=== PATIENT | male | born 1945 | race Caucasian/White ===

== ENCOUNTER 2017-03-20 15:47 | Emergency (ER) | payer MEDICARE, OTHER ==
[2017-03-20 16:09] VITALS: BP 133/66
--- NOTE | 2017-03-20 16:31 | UC ---
UC General HPI - HPI Summary HPI Summary: C/O increased blood sugars up into the 400's. Also c/o left leg electric pain. - History of Current Complaint Chief Complaint: UCGeneralIllness Stated Complaint: ELEVATED BLOOD SUGAR Time Seen by Provider: 03/20/17 16:17 Hx Obtained From: Patient Onset/Duration: Sudden Onset - started checking sugars today and 300-400. Timing: Constant Onset Severity: Moderate Current Severity: Moderate Pain Location at: left lateral leg Aggravating: Nothing Alleviating: PT exercises. Associated Signs & Symptoms: Negative: Abdominal Pain, Confusion, Dysuria, Decreased Oral Intake, Melena, Palpitations, Syncope - Allergy/Home Medications Allergies/Adverse Reactions: Allergies Allergy/AdvReac Type Severity Reaction Status Date / Time No Known Allergies Allergy Verified 03/20/17 16:09 Home Medications: Home Medications Aspirin TAB* [Aspirin 325 MG TAB*] 325 mg PO DAILY 03/20/17 [History Confirmed 03/20/17] Lisinopril TAB* [Prinivil TAB 10 MG*] 20 mg PO DAILY 03/20/17 [History Confirmed 03/20/17] Multivitamins/Minerals TAB* [Theragran/minerals TAB*] 1 tab PO DAILY 03/20/17 [ History Confirmed 03/20/17] Pantoprazole Sodium [Protonix] 40 mg PO DAILY 03/20/17 [History Confirmed ] PMH/Surg Hx/FS Hx/Imm Hx Endocrine History: Diabetes - Newly diagnosed Cardiovascular History: Hypertension - Surgical History Surgical History: Yes Surgery Procedure, Year, and Place: 2004 Gallbladder - Family History Known Family History: Positive: Hypertension Negative: Cardiac Disease, Diabetes - Social History Occupation: Retired Lives: With Family Alcohol Use: None Substance Use Type: None Smoking Status (MU): Never Smoked Tobacco Have You Smoked in the Last Year: No Review of Systems Genitourinary: Frequency - Polyuria with polydipsia Is Patient Immunocompromised?: No All Other Systems Reviewed And Are Negative: Yes Physical Exam Triage Information Reviewed: Yes Appearance: Well-Appearing, No Pain Distress, Well-Nourished Vital Signs: Initial Vital Signs Temp 98.1 F 03/20/17 16:02 Resp 18 03/20/17 16:02 BP 133/66 03/20/17 16:02 Pulse Ox 100 03/20/17 16:02 Vital Signs Reviewed: Yes Eyes: Positive: Conjunctiva Clear Neck exam: Normal - No bruits Respiratory Exam: Normal Cardiovascular Exam: Normal Abdomen Description: Negative: Nontender - mild LLQ tenderness, Guarding, Peritoneal Signs Bowel Sounds: Positive: Present Neurological: Positive: Other: - decreased sensation to pinprick left [id number] Psychological Exam: Normal Skin Exam: Normal Course/Dx - Differential Dx - Multi-Symptom Differential Diagnoses: CVA, Metabolic Abnormality, Urinary Tract Infection Provider Diagnoses: Type 2 diabetes with hyperglycemia. Lumbar radiculopathy Discharge - Discharge Plan Condition: Stable Disposition: HOME Prescriptions: Metformin HCl [Metformin HCl ER] 500 mg PO DAILY WITH MEAL #60 tab Patient Education Materials: Type 2 Diabetes in Adults (ED), Metformin (By mouth), Lumbar Radiculopathy (ED) Additional Instructions: Follow up with your provider on Wednesday. You will likely need to start insulin. You will need to read all labels and check for carbohydrates. Decrease potatoes , pasta, bread, rice, pizza, bagels, or anything with white flour or sugar.
== END 2017-03-20 16:55 | disposition home or self-care (01) ==
LOC: UCCORT 15:47
DX: E11.65 Type 2 diabetes mellitus with hyperglycemia (principal); M54.16 Radiculopathy, lumbar region; I10 Essential (primary) hypertension
CPT/HCPCS: 99202; G0463